=== PATIENT | male | born 1940 | race Caucasian/White ===

== ENCOUNTER 2019-03-07 09:25 | Outpatient (CLI) | payer MEDICARE, OTHER, SELFPAY ==
[2019-03-08 09:41] LABS: PSA, Screening 2.4 ng/ml (0-6.5)
== END 2019-03-07 09:45 ==
PROVIDERS: PCP Emergency Medicine; Visit Provider Emergency Medicine
DX: Z12.5 Encounter for screening for malignant neoplasm of prostate (principal); N40.0 Benign prostatic hyperplasia without lower urinary tract symptoms
CPT/HCPCS: 36415; 84153

== ENCOUNTER 2020-12-05 15:05 | Outpatient (REF) | payer MEDICARE, OTHER, SELFPAY ==
[2020-12-05 13:47] LABS: Calculated LDL 96 mg/dL (<100); Cholesterol 167 mg/dL (<200); HDL Cholesterol 42 mg/dL (40-60); Triglyceride 149 mg/dL (<150)
== END 2020-12-05 15:06 | disposition home or self-care (01) ==
LOC: LBN 15:05
PROVIDERS: PCP Emergency Medicine; Visit Provider Emergency Medicine
DX: E78.5 Hyperlipidemia, unspecified (principal)
CPT/HCPCS: 80061